=== PATIENT | male | born 1995 ===

== ENCOUNTER 2018-07-25 21:40 | Emergency (ER) | payer OTHER ==
[2018-07-25 21:52] VITALS: BP 117/77; PULSE 80; TEMP 98.5; O2SAT 98
--- NOTE | 2018-07-25 22:24 | C.PDOC ---
History Of Present Illness Patient reports subjective fever yesterday, and diarrhea x4 today. No nausea/vomiting. States that he intermittently gets abdominal cramping which lasts for maybe 10 seconds then subsides. No recent abx use or travel. No hematochezia or melena. Time Seen by Provider: 07/25/18 21:56 Chief Complaint (Nursing): Abdominal Pain Past Medical History Reviewed: Historical Data, Nursing Documentation, Vital Signs Vital Signs: Last Vital Signs Temp 98.5 F 07/25/18 21:49 Pulse 80 07/25/18 21:49 Resp 20 07/25/18 21:49 BP 117/77 07/25/18 21:49 Pulse Ox 98 07/25/18 21:49 - Medical History PMH: No Chronic Diseases Surgical History: No Surg Hx Family History: States: No Known Family Hx - Social History Hx Alcohol Use: Yes Hx Substance Use: No Review Of Systems Except As Marked, All Systems Reviewed And Found Negative. Constitutional: Positive for: Fever (subjective) Cardiovascular: Negative for: Chest Pain Respiratory: Negative for: Shortness of Breath Gastrointestinal: Positive for: Abdominal Pain, Diarrhea. Negative for: Nausea, Vomiting, Melena, Hematochezia Genitourinary: Negative for: Dysuria Neurological: Negative for: Weakness Physical Exam - Physical Exam Appears: Well, Non-toxic, No Acute Distress Skin: Normal Color, Warm, Dry Head: Atraumatic Eye(s): bilateral: Normal Inspection Oral Mucosa: Moist Cardiovascular: Rhythm Regular Respiratory: Normal Breath Sounds Gastrointestinal/Abdominal: Soft, No Tenderness, No Mass, No Distention, No Guarding Neurological/Psych: Oriented x3, Normal Speech Gait: Steady ED Course And Treatment O2 Sat by Pulse Oximetry: 98 Medical Decision Making Medical Decision Making: Patient with diarrhea x4 today. Well-appearing, non-toxic, with normal vitals. has been tolerating PO. Labs not indicated at this time. Offered IV hydration, however patient states that he prefers to go home and drink PO fluids since he has not been vomiting. Advised return to the ED for any new or worsening symptoms, and outpatient followup as needed. Patient afebrile. Disposition - Disposition Disposition: HOME/ ROUTINE Disposition Time: 22:26 Condition: GOOD Additional Instructions: DAO LOPEZ, thank you for letting us take care of you today. Your provider was Anika Rojo MD and you were treated for STOMACH PAINS/DIARRHEA. The emergency medical care you received today was directed at your acute symptoms. If you were prescribed any medication, please fill it and take as directed. It may take several days for your symptoms to resolve. Return to the Emergency Department if your symptoms worsen, do not improve, or if you have any other problems. Please contact your doctor or call one of the physicians/clinics you have been referred to that are listed on the Patient Visit Information form that is included in your discharge packet. Bring any paperwork you were given at discharge with you along with any medications you are taking to your follow up visit. Our treatment cannot replace ongoing medical care by a primary care provider outside of the emergency department. Thank you for allowing the [email or web address] team to be part of your care today. If you had an X-Ray or CT scan: A Radiologist will review the ED reading if any change in treatment is needed we will contact you. If you had a blood, urine, or wound culture: It will take several days for the results, if any change in treatment is needed we will contact you. If you had an STI test: It will take 48 hours for the results. Please call after 1 week if you have not heard back. Instructions: Viral Gastroenteritis, Adult (DC) - Clinical Impression Clinical Impression: Viral gastroenteritis, Diarrhea
[2018-07-25 22:47] VITALS: RESP 16
== END 2018-07-25 22:46 | disposition home or self-care (01) ==
LOC: C.ER 21:40
DX: A08.4 Viral intestinal infection, unspecified (principal); R19.7 Diarrhea, unspecified